=== PATIENT | female | born 1975 | race Caucasian/White ===

== ENCOUNTER 2020-03-06 16:32 | Emergency (ER) | payer OTHER ==
[~2020-03-06] VITALS: Ht 175.3 cm; Wt 113.4 kg
[2020-03-06 18:02] LABS: ABSOLUTE NEUTROPHILS 7.3 thou/uL (1.4-8.2); BASOPHILS 1.1 % (0.0-2.0); EOSINOPHILS 1.1 % (0.0-3.0); HEMATOCRIT 32.5 % (37.0-47.0); HEMOGLOBIN 10.2 gm/dL (12.0-15.0); LYMPHOCYTES 19.8 % (24.0-44.0); MCHC 31.3 g/dL (28.0-37.0); MCV 70.4 fL (80.0-100.0); MONOCYTES 6.3 % (1.0-8.0); PLATELET COUNT 431 thou/uL (150-400); POLYS 71.7 % (36.0-66.0); RBC 4.62 mil/uL (4.20-5.00); RDW 19.3 % (10.5-14.5); WBC 10.1 thou/uL (4.0-11.0)
[2020-03-06 18:04] LABS: URINE BILIRUBIN NEGATIVE (Negative); URINE BLOOD NEGATIVE (Negative); URINE CLARITY CLEAR; URINE COLOR YELLOW; URINE GLUCOSE-RANDOM* NEGATIVE (Negative); URINE KETONES NEGATIVE (Negative); URINE LEUKOCYTES-REFLEX NEGATIVE (Negative); URINE NITRITE-REFLEX NEGATIVE (Negative); URINE PROTEIN (DIPSTICK) NEGATIVE (Negative); URINE SPECIFIC GRAVITY 1.025 (1.005-1.035); URINE UROBILINOGEN 0.2 E.U./dl (0.2-1.0)
[2020-03-06 18:18] LABS: ANION GAP 9 mmol/L (7-16); APTT 27.8 Seconds (24.5-32.8); BUN 15 mg/dL (7-18); CALCIUM 8.4 mg/dL (8.5-10.1); CHLORIDE 97 mmol/L (98-107); CO2 28 mmol/L (21-32); GLUCOSE 196 mg/dL (74-106); POTASSIUM 3.5 mmol/L (3.5-5.1); PROTIME 10.4 Seconds (9.3-11.4); SODIUM 134 mmol/L (136-145)
[2020-03-06 18:26] LABS: ANISOCYTOSIS 2+; HYPOCHROMASIA 2+; MICROCYTES 3+
[2020-03-06 18:28] LABS: ALBUMIN 3.3 g/dL (3.4-5.0); SGOT 47 U/L (15-37); SGPT 63 U/L (30-65); TOTAL BILIRUBIN 0.3 mg/dL (0.2-1.0); TROPONIN-I <0.06 ng/mL (<0.06)
[2020-03-06] MEDS ORDERED: LISINOPRIL5 MG PO (18:53)
[2020-03-06 19:45] VITALS: BP 158/88
--- NOTE | 2020-03-07 09:12 | EKG ---
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
== END 2020-03-06 19:59 | disposition home or self-care (01) ==
LOC: ER 16:32
PROVIDERS: Physician Assistant
DX: I10 Essential (primary) hypertension (principal); R55 Syncope and collapse; D64.9 Anemia, unspecified; R51 Headache; E87.1 Hypo-osmolality and hyponatremia; Z88.5 Allergy status to narcotic agent; Z20.828 Contact with and (suspected) exposure to other viral communicable diseases